=== PATIENT | female | born 1960 | race Caucasian/White ===

== ENCOUNTER 2019-02-18 13:41 | Emergency (ER) | payer MEDICAID ==
[~2019-02-18] VITALS: Ht 157.5 cm; Wt 61.8 kg
[2019-02-18 13:50] VITALS: BP 116/80
== END 2019-02-18 15:10 | disposition home or self-care (01) ==
LOC: ER 13:42
DX: S22.32XA Fracture of one rib, left side, initial encounter for closed fracture (principal); S40.021A Contusion of right upper arm, initial encounter; M25.512 Pain in left shoulder; Z88.8 Allergy status to other drugs, medicaments and biological substances; W18.39XA Other fall on same level, initial encounter; Y93.89 Activity, other specified; Y92.89 Other specified places as the place of occurrence of the external cause; Y99.8 Other external cause status
CPT/HCPCS: 99284